=== PATIENT | male | born 1990 | race Caucasian/White ===

== ENCOUNTER 2022-09-23 22:42 | Emergency (ER) | payer MEDICAID, OTHER ==
[~2022-09-23] VITALS: Ht 175.3 cm; Wt 75.0 kg
[2022-09-24 04:14] VITALS: BP 123/82
[2022-09-24] MEDS ORDERED: FLUORESCEIN SOD OPTH TEST STRIP RIGHTEYE ONE (04:30)
[2022-09-24] MEDS ORDERED: TETRACAINE HCL 0.5% OPTH(EYE) SOLN 4ML RIGHTEYE ONE (04:30)
[2022-09-24] MEDS ORDERED: ERY05OO OP (05:04)
== END 2022-09-24 05:20 | disposition home or self-care (01) ==
LOC: ER 22:43
DX: T15.81XA Foreign body in other and multiple parts of external eye, right eye, initial encounter (principal); W22.8XXA Striking against or struck by other objects, initial encounter; Y93.89 Activity, other specified; Y92.89 Other specified places as the place of occurrence of the external cause; Y99.8 Other external cause status

== ENCOUNTER 2023-08-09 07:10 | Emergency (ER) | payer MEDICAID ==
[~2023-08-09] VITALS: Ht 175.3 cm; Wt 78.4 kg
[~2023-08-09 07:10] MED LIST: ERY05OO OP
[2023-08-09] MEDS ORDERED: BACDST PO ×3 (07:46→07:51)
[2023-08-09] MEDS ORDERED: DOXY-447 PO ×3 (07:46→07:51)
[2023-08-09 07:47] VITALS: BP 135/90; PULSE 112; RESP 16; TEMP 98.3; O2SAT 99
== END 2023-08-09 07:59 | disposition home or self-care (01) ==
LOC: ER 07:10
DX: L73.9 Follicular disorder, unspecified (principal); A64 Unspecified sexually transmitted disease

== ENCOUNTER 2025-02-26 12:50 | Emergency (ER) | payer MEDICAID ==
[~2025-02-26] VITALS: Ht 172.7 cm; Wt 74.6 kg
[~2025-02-26 12:50] MED LIST changes: +BACDST PO; +DOXY1CAP58 PO
[2025-02-26 14:27] VITALS: BP 151/98; PULSE 83; RESP 20; TEMP 97.5; O2SAT 100
--- NOTE | 2025-02-26 14:38 | ED.PDOC ---
History of Present Illness HPI Comments A 35 YEAR OLD FEMALE PRESENTS TO THE ED WITH COMPLAINT OF WOUND RECHECK. PATIENT STATES HE SUSTAINED A PUNCTURE WOUND ON HIS LEFT THUMB 2 WEEKS AGO WHEN HE WAS USING A [employer], AND STATES IT BEGAN TO BLEED ONCE AGAIN TODAY, PROMPTING HIM TO COME TO THE ED FOR EVALUATION. PATIENT DENIES FEVER, CHILLS, SHORTNESS OF BREATH, CHEST PAIN, ABDOMINAL PAIN, NAUSEA, VOMITING, HEADACHE, OR OTHER COMPLAINTS. NO OTHER SYMPTOMS OR MODIFYING FACTORS AT THIS TIME. PATIENT IS ALERT, ORIENTED X 4, AND HAS STEADY GAIT. Chief Complaint: Wound Check Time Seen by MD: 13:14 Primary Care Provider: CLARE Reviewed Notes: Nurses Notes, Medications, Allergies Allergies: Coded Allergies: NO KNOWN ALLERGIES (Unverified , 08/09/23) Home Meds Active Scripts Sulfamethoxazole W/Trimethopri (Bactrim Ds Tablet) 1 Tab Tb, 1 TAB PO BID for 10 Days, #20 TAB Prov:ELOISA SANFORD 08/09/23 Doxycycline (Monohydrate) (Doxycycline) 100 Mg Cap, 100 MG PO BID, #14 CAP Prov:ELOISA SANFORD 08/09/23 Erythromycin (Erythromycin) 5 Mg/Gm Oin, 1 MG OP 6XD for 7 Days, #1 OIN 0 Refills Prov:DORIS ACEVEDO 09/24/22 Information Source: Patient Mode of Arrival: Ambulatory Severity: Moderate Timing: Days Duration: Since onset, Days Medication Refill: For: Other (WOUND RECHECK) Past Medical History PAST MEDICAL HISTORY: Denies Surgical History: Denies all surgeries Family History Family History: Reviewed,noncontributory to illness Social History Smoker: Non-Smoker Alcohol: Denies ETOH Use Drugs: Denies Drug Use Lives In: Home Constitutional: denies: chills, diaphoresis, fatigue, fever, malaise, sweats, weakness, others EENTM: denies: blurred vision, double vision, ear bleeding, ear discharge, ear drainage, ear pain, ear ringing, eye pain, eye redness, hearing loss, mouth pain, mouth swelling, nasal discharge, nose bleeding, nose congestion, nose pain, photophobia, tearing, throat pain, throat swelling, voice changes, others Respiratory: denies: cough, hemoptysis, orthopnea, SOB at rest, shortness of breath, SOB with excertion, stridor, wheezing, others Cardiovascular: denies: chest pain, dizzy spells, diaphoresis, Dyspnea on exertion, edema, irregular heart beat, left arm pain, lightheadedness, palpitations, PND, syncope, others Gastrointestinal: denies: abdomen distended, abdominal pain, blood streaked bowels, constipated, diarrhea, dysphagia, difficulty swallowing, hematemesis, melena, nausea, poor appetite, poor fluid intake, rectal bleeding, rectal pain, vomiting, others Genitourinary: denies: burning, dysuria, flank pain, frequency, hematuria, incontinence, penile discharge, penile sore, pain, testicle pain, testicle swelling, urgency, others Neurological: denies: dizziness, fainting, headache, left sided numbness, left sided weakness, numbness, paresthesia, pre-existing deficit, right sided numbness, right sided weakness, seizure, speech problems, tingling, tremors, weakness, others Musculoskeletal: denies: back pain, gout, joint pain, joint swelling, muscle pain, muscle stiffness, neck pain, others Integumetry: reports: wounds (PUNCTURE WOUND OF LEFT THUMB); denies: bruises, change in color, change in hair/nails, dryness, laceration, lesions, lumps, rash, others Allergic/Immunocompromised: denies: Difficulty Healing, Frequent Infections, Hives, Itching, others Hematologic/Lymphatic: denies: anemia, blood clots, easy bleeding, easy bruising, swollen glands, others Endocrine: denies: excessive hunger, excessive sweating, excessive thirst, excessive urination, flushing, intolerance to cold, intolerance to heat, unexplained weight gain, unexplained weight loss, others Psychiatric: denies: anxiety, bipolar disorder, depression, hopeless, panic disorder, schizophrenia, sleepless, suicidal, others All Other Systems: Reviewed and Negative Physical Exam General Appearance: No Apparent Distress, Normal HEENT: Normal ENT Inspection, PERRL/EOMI, Pharynx Normal, TMs Normal Neck: Full Range of Motion, Non-Tender, Normal, Normal Inspection Respiratory: Chest Non-Tender, Lungs Clear, No Accessory Muscle Use, No Respiratory Distress, Normal Breath Sounds Cardiovascular: No Edema, No JVD, No Murmur, No Gallop, Normal Peripheral Pulses, Regular Rate/Rhythm Breast Exam: Deferred Gastrointestinal: No Organomegaly, Non Tender, No Pulsatile Mass, Normal Bowel Sounds, Soft Genitalia: Deferred Pelvic: Deferred Rectal: Deferred Extremities: No calf tenderness, Normal capillary refill, Normal range of motion, No pedal edema, Tender (AND PUNCTURE WOUND ON LEFT THUMB WITH REDNESS AND SWELLING, NO BONY TENDERNESS AND DEFORMITY. ) Musculoskeletal : Apperance: Normal Neurologic: Alert, road mender II-XII nml as Tested, No Motor Deficits, Normal Affect, Normal Mood, No Sensory Deficits Cerebellar Function: Normal Reflexes: Normal Skin: Dry, Warm, Wounds (PUNCTURE WOUND WITH LOCALIZED REDNESS AND SWELLING ON RIGHT THUMB. SOFT TISSUE INFECTION. ) Peripheral Pulses: 2+ carotid (R), 2+ carotid (L), 2+ Radial (R), 2+ Radial (L) Lymphatic: No Adenopathy Was a procedure done? Was a procedure done?: Yes Sedation Sedation?: No Incision and Drainage Incision and Drainage: Other (INFECTED PUNCTURE WOUND) Location LEFT THUMB Anesthetic: Lidocaine Preparation: Saline Incision and Wound: Pus, Blood, Amount, Irrigated Informed consent obtained: No Risks/benefits/alt described: Yes Differential Dx Considerations may include: PUNCTURE WOUND, WOUND RECHECK, WOUND INFECTION, PARONYCHIA X-Ray, Labs, Meds, VS Vital Signs Date Time Temp Pulse Resp B/P (MAP) Pulse Ox O2 Delivery O2 Flow Rate FiO2 02/26/25 14:27 97.5 83 20 151/98 (115) 100 97.5 02/26/25 14:27 83 20 100 Room Air 02/26/25 12:57 98.6 88 18 145/95 (112) 98 98.6 Current Medications Medications (Trade) Dose Ordered Sig/Britt Route Start Time Stop Time Status Last Admin Ketorolac Tromethamine (Toradol Injection) 60 mg ONCE ONCE IM 02/26/25 14:30 02/26/25 14:31 DC 02/26/25 14:53 X-Ray, Labs, Meds, VS Comment EXTERNAL MEDICAL RECORDS REVIEWED: [NONE] INDEPENDENT HISTORIANS: [NONE] SOCIAL DETERMINANTS OF HEALTH: [NONE] LABS ORDERED: NONE REVIEWED AND INTERPRETED RESULTS: NONE IMAGING ORDERED: XR HAND LT: [INTERPRETED BY ME. NO ACUTE FINDINGS. NO FRACTURES OR DISLOCATION. PENDING RADIOLOGIST REPORT.] TREATMENTS ORDERED: SEE PROCEDURE SECTION. PROCEDURES PERFORMED: INCISION AND DRAINAGE, SEE PROCEDURE SECTION. CRITICAL CARE TIME: NONE I HAVE DISCUSSED THE PATIENT WITH THE ATTENDING PHYSICIAN DR. FIGUEROA AND HE AGREES WITH THE PATIENT'S PLAN OF CARE AND DISPOSITION. BASED ON HISTORY OF PRESENT ILLNESS, AND PHYSICAL EXAM, PATIENT WILL BE DISCHARGED HOME. DISCUSSED PLAN FOR DISCHARGE HOME WITH RX [KEFLEX AND NAPROXEN 500 MG]. MEDICATION WARNINGS GIVEN. SHARED DECISION MAKING: PATIENT INSTRUCTED TO FOLLOW UP WITH [facility] IN 1-2 DAYS FOR RE-EVALUATION OF SYMPTOMS. PATIENT VERBALIZES UNDERSTANDING TO RETURN TO ED FOR NEW OR WORSENING SYMPTOMS OR IF FOLLOW UP WITH PCP CANNOT BE OBTAINED. PATIENT FEELS COMFORTABLE GOING HOME AT THIS TIME. ALL QUESTIONS ADDRESSED AT TIME OF DISCHARGE. Images Reviewed?: Images reviewed and evaluated by me Time of 1ST Reevaluation: 15:00 Reevaluation 1ST: Improved Patient Education/Counseling: Diagnosis, Treatment, Need For Follow Up Family Education/Counseling: Diagnosis, Treatment, Need For Follow Up Medical Screening: No EMC Exist At This Time Departure 1 Departure Time of Disposition: 15:00 Impression: Primary Impression: Encounter for wound re-check Additional Impression: Wound abscess Disposition: 01 HOME / SELF CARE / HOMELESS Condition: Stable Additional Instructions: FOLLOW-UP WITH PCP IN 1 TO 2 DAYS. TAKE MEDICATIONS PRESCRIBED. RETURN TO ED FOR ANY NEW OR WORSENING SYMPTOMS. e-Prescriptions Naproxen (Naproxen) 500 Mg Tab 500 MG PO BID, #30 TAB Prov: ELOISA SANFORD 02/26/25 Cephalexin Monohydrate (Cephalexin) 500 Mg Cap 1 CAP PO QID, #28 CAP Prov: ELOISA SANFORD 02/26/25 Discharged With: Self Critical Care Note Critical Care Time?: No Stability Stability form required: No I personally scribed for ELOISA SANFORD ([email or web address]) on 02/26/25 at 14:37. Electronically submitted by John Gleason ([email or web address]). I personally scribed for ELOISA SANFORD ([email or web address]) on 02/26/25 at 14:54. Electronically submitted by John Gleason ([email or web address]). ELOISA SANFORD February 26, 2025 14:37
[2025-02-26] MEDS: KETOROLAC TROMETH 60MG/2ML VIAL IM ONE (14:53)
--- NOTE | 2025-02-26 14:56 | DVH ---
CLINICAL INDICATION: PUNCTURE WOUND X 2 WEEKS TECHNIQUE: 3 radiographic views of the left 1st finger were obtained. Comparison: None FINDINGS/IMPRESSION: There is no evidence of acute fracture or dislocation. The visualized joint space is well maintained. The alignment is anatomical. There is no radiopaque foreign body.
[2025-02-26] MEDS ORDERED: NAPR-746 PO (14:58)
[2025-02-26] MEDS ORDERED: CEPH500C PO (14:58)
== END 2025-02-26 15:09 | disposition home or self-care (01) ==
LOC: ER 12:58
DX: T81.49XA Infection following a procedure, other surgical site, initial encounter (principal); Z48.00 Encounter for change or removal of nonsurgical wound dressing; Y92.89 Other specified places as the place of occurrence of the external cause
CPT/HCPCS: 10060; 73140; 96372; 99283; J1885